=== PATIENT | male | born 1940 | race Caucasian/White ===

== ENCOUNTER 2019-06-24 09:27 | Emergency (ER) | payer MEDICARE ==
[~2019-06-24] VITALS: Ht 177.8 cm; Wt 75.7 kg
--- NOTE | 2019-06-24 10:03 | NUR ---
PT SEEN BY MD GRANGER, TRAUMA STATUS CALLED OFF PER MD GRANGER.
--- NOTE | 2019-06-24 10:20 | NUR ---
PT TAKEN TO CT
[2019-06-24 11:04] VITALS: BP 128/59
== END 2019-06-24 11:06 | disposition home or self-care (01) ==
LOC: ER 09:29
DX: S80.11XA Contusion of right lower leg, initial encounter (principal); S00.83XA Contusion of other part of head, initial encounter; F17.200 Nicotine dependence, unspecified, uncomplicated; Z88.8 Allergy status to other drugs, medicaments and biological substances; W18.39XA Other fall on same level, initial encounter; Y93.89 Activity, other specified; Y92.89 Other specified places as the place of occurrence of the external cause; Y99.8 Other external cause status
CPT/HCPCS: 70450; 73590; 99284

== ENCOUNTER 2020-05-28 06:04 | Day surgery (SDC) | payer MEDICARE ==
[2020-05-27 08:59] LABS: BASOPHILS % (AUTO) 0.6 % (0-1); EOSINOPHILS # (AUTO) 0.1 X10'3 (0-0.9); HEMATOCRIT 40.1 % (42.0-52.0); HEMOGLOBIN 13.7 g/dl (14.0-17.9); LYMPHOCYTES # (AUTO) 1.2 X10'3 (1.1-4.8); MEAN CORPUSCULAR HEMOGLOBIN 34.2 PG (27.0-31.0); MEAN CORPUSCULAR HGB CONC 34.2 g/dL (33.0-36.5); MEAN CORPUSCULAR VOLUME 100.1 FL (78-98); MEAN PLATELET VOLUME 7.8 FL (7.4-10.4); MONOCYTES # (AUTO) 0.5 X10'3 (0-0.9); MONOCYTES % (AUTO) 7.4 % (2-12); NEUTROPHILS # (AUTO) 4.6 X10'3 (1.8-7.7); PLATELET COUNT 156 X10'3 (140-440); RED BLOOD COUNT 4.01 X10'6 (4.70-6.10); RED CELL DISTRIBUTION WIDTH 12.9 % (11.5-14.5); WHITE BLOOD COUNT 6.5 X10'3 (4.5-11.0)
[2020-05-27 09:16] LABS: ALBUMIN 3.6 G/DL (3.4-5.0); ANION GAP 4 (8-16); BLOOD UREA NITROGEN 17 MG/DL (7-18); BUN/CREATININE RATIO 17.7 (5.4-32.0); CALCIUM 9.2 MG/DL (8.5-10.1); CHLORIDE 107 MMOL/L (99-107); CREATININE 0.96 MG/DL (0.60-1.10); GLUCOSE 99 MG/DL (70-104); POTASSIUM 4.5 MMOL/L (3.5-5.1); SODIUM 141 MMOL/L (135-145); TOTAL CARBON DIOXIDE 29.6 MMOL/L (24-32); eGFR 76 ML/MIN
[2020-05-27 09:18] LABS: PARTIAL THROMBOPLASTIN TIME 27 SECONDS (22-32)
[~2020-05-28] VITALS: Ht 172.7 cm; Wt 76.6 kg
[2020-05-28] VITALS (10 sets, daily range): BP systolic 103–127; BP diastolic 37–74
[2020-05-28] MEDS ORDERED: diphenhydrAMINE 25mg capsule PO PRN (06:25)
[2020-05-28] MEDS ORDERED: LORazepam 0.5 MG tablet PO PRN (06:25)
[2020-05-28] MEDS ORDERED: LIDOcaine/PRILOcaine 5gm cream TP ONE (06:35)
[2020-05-28] MEDS ORDERED: IRBE75TA30 PO (06:37)
[2020-05-28] MEDS ORDERED: METO50TA17 PO (06:37)
[2020-05-28] MEDS ORDERED: FLO0.4C PO (06:37)
[2020-05-28] MEDS ORDERED: MELA5TAB12 PO (06:37)
[2020-05-28] MEDS ORDERED: RIVA20TA PO (06:37)
[2020-05-28] MEDS ORDERED: ROSU20TA2 PO (06:37)
[2020-05-28] MEDS ORDERED: ESOM20CA PO (06:37)
[2020-05-28] MEDS ORDERED: ASPI-611 PO (06:37)
[2020-05-28] MEDS: normal saline 1,000 ML IV SCH ×2 (07:02→11:03)
[2020-05-28] MEDS ORDERED: LIDOcaine 1% (10mg/ml)w/preservative injection 20ml MDV ONE (07:39)
[2020-05-28] MEDS ORDERED: iohexol 350 MG/ML 50ML vial IV ONE ×2 (07:39→08:55)
[2020-05-28] MEDS ORDERED: fentaNYL/PF 50MCG/1 ML 2ML syringe ONE (07:39)
[2020-05-28] MEDS ORDERED: iohexol 350MG/ML 100ml bottle IV ONE (07:39)
[2020-05-28] MEDS ORDERED: heparin 1,000unit/ml 10ml vial 10 ML ONE (07:39)
[2020-05-28] MEDS ORDERED: midazolam 2 mg/2 ml injection ONE (07:39)
[2020-05-28] MEDS ORDERED: nitroGLYCERIN-Tridil 50MG/D5W 250 ML IV ONE (07:39)
[2020-05-28] MEDS ORDERED: verapamil 2.5 mg/ml inj IV ONE (07:44)
[2020-05-28] MEDS ORDERED: CHLOROPROCAINE SQ ONE (08:15)
== END 2020-05-28 15:00 | disposition home or self-care (01) ==
LOC: SSTAY O 06:04
PROVIDERS: ATTEND Internal Medicine Cardiovascular Disease
DX: R94.39 Abnormal result of other cardiovascular function study (principal); R06.02 Shortness of breath; R53.83 Other fatigue; I10 Essential (primary) hypertension; E78.5 Hyperlipidemia, unspecified; I48.91 Unspecified atrial fibrillation; I25.10 Atherosclerotic heart disease of native coronary artery without angina pectoris; J44.9 Chronic obstructive pulmonary disease, unspecified; Z95.5 Presence of coronary angioplasty implant and graft; F17.210 Nicotine dependence, cigarettes, uncomplicated; Z79.82 Long term (current) use of aspirin; Z79.899 Other long term (current) drug therapy; Z98.890 Other specified postprocedural states; Z72.89 Other problems related to lifestyle
CPT/HCPCS: 36415; 76937; 80048; 85025; 85610; 85730; 93005; 93458; 99152; 99153; C1769; C1894; J1644; J2001; J2250; J3010; J7030; Q0163; Q9967; A4620; A5120; A6258; C1751; J2400; J3490

== ENCOUNTER 2021-03-13 19:28 | Emergency (ER) | payer MEDICARE ==
[~2021-03-13] VITALS: Ht 167.6 cm; Wt 74.1 kg
[~2021-03-13 19:28] MED LIST: ASPI-611 PO; ESOM20CA PO; FLO0.4C PO; IRBE75TA30 PO; MELA5TAB12 PO; METO50TA17 PO; RIVA20TA PO; ROSU20TA2 PO
[2021-03-13] MEDS ORDERED: benzonatate 100mg capsule PO ONE (20:10)
[2021-03-13 20:18] LABS: BASOPHILS % (AUTO) 0.4 % (0-1); EOSINOPHILS # (AUTO) 0.1 X10'3 (0-0.9); EOSINOPHILS % (AUTO) 1.1 % (0-6); HEMATOCRIT 43.9 % (42.0-52.0); HEMOGLOBIN 14.9 g/dl (14.0-17.9); LYMPHOCYTES # (AUTO) 1.4 X10'3 (1.1-4.8); LYMPHOCYTES % (AUTO) 13.9 % (21-51); MEAN CORPUSCULAR HEMOGLOBIN 33.4 PG (27.0-31.0); MEAN CORPUSCULAR VOLUME 98.4 FL (78-98); MEAN PLATELET VOLUME 7.8 FL (7.4-10.4); MONOCYTES # (AUTO) 0.9 X10'3 (0-0.9); MONOCYTES % (AUTO) 9.1 % (2-12); NEUTROPHILS # (AUTO) 7.6 X10'3 (1.8-7.7); NEUTROPHILS % (AUTO) 75.5 % (42-75); PLATELET COUNT 183 X10'3 (140-440); RED BLOOD COUNT 4.46 X10'6 (4.70-6.10); RED CELL DISTRIBUTION WIDTH 13.3 % (11.5-14.5); WHITE BLOOD COUNT 10.1 X10'3 (4.5-11.0)
[2021-03-13 20:24] LABS: ALANINE AMINOTRANSFERASE 13 U/L (12-78); ALBUMIN 3.5 G/DL (3.4-5.0); ALBUMIN/GLOBULIN RATIO 0.9 (1.1-1.5); ALKALINE PHOSPHATASE 109 IU/L (46-116); ANION GAP 10 (8-16); ASPARTATE AMINO TRANSFERASE 16 U/L (10-37); BILIRUBIN,TOTAL 0.5 MG/DL (0.1-1.0); BLOOD UREA NITROGEN 19 MG/DL (7-18); BUN/CREATININE RATIO 18.1 (5.4-32.0); CALCIUM 8.9 MG/DL (8.5-10.1); CHLORIDE 109 MMOL/L (99-107); CREATININE 1.05 MG/DL (0.60-1.10); GLUCOSE 91 MG/DL (70-104); POTASSIUM 4.1 MMOL/L (3.5-5.1); SODIUM 144 MMOL/L (135-145); TOTAL CARBON DIOXIDE 25.4 MMOL/L (24-32); TOTAL PROTEIN 7.3 G/DL (6.4-8.2); eGFR 68 ML/MIN
[2021-03-13] MEDS ORDERED: metoprolol tartrate 1mg/ml inj IV ONE (20:35)
[2021-03-13] MEDS ORDERED: metoprolol tartrate 50mg tablet PO ONE (21:30)
[2021-03-13 22:02] VITALS: BP 117/61
== END 2021-03-13 22:03 | disposition home or self-care (01) ==
LOC: ER 19:29
DX: J22 Unspecified acute lower respiratory infection (principal); Z20.822 Contact with and (suspected) exposure to COVID-19; J45.909 Unspecified asthma, uncomplicated; Z88.8 Allergy status to other drugs, medicaments and biological substances; Z79.82 Long term (current) use of aspirin; Z79.899 Other long term (current) drug therapy
CPT/HCPCS: 36415; 71045; 80053; 85025; 93005; 96374; 99285; U0003; U0005; J3490

== ENCOUNTER 2021-04-27 01:40 | Emergency (ER) | payer MEDICARE ==
[~2021-04-27] VITALS: Ht 175.3 cm; Wt 77.3 kg
[2021-04-27 01:51] VITALS: BP 168/77
[2021-04-27] MEDS ORDERED: TETanus/Pertussis (Acell)/Diphther VAC/PF (Tdap-Adult) 0.5ml syringe IMVAC ONE (02:20)
[2021-04-27] MEDS ORDERED: NORMAL SALINE IV ONE ×2 (03:00→03:15)
[2021-04-27] MEDS ORDERED: DIPHENHYDRAMINE IV ONE ×2 (03:00→03:15)
[2021-04-27] MEDS ORDERED: CEPH-585 PO (04:18)
[2021-04-27] MEDS ORDERED: cephalexin 500mg capsule PO ONE (04:30)
[2021-04-27] MEDS ORDERED: tetanus & diphtheria toxoid (Td) vaccine 0.5ml IMVAC ONE (04:35)
== END 2021-04-27 04:53 | disposition home or self-care (01) ==
LOC: ER 01:41
DX: S61.213A Laceration without foreign body of left middle finger without damage to nail, initial encounter (principal); Z79.01 Long term (current) use of anticoagulants; I25.10 Atherosclerotic heart disease of native coronary artery without angina pectoris; I10 Essential (primary) hypertension; J44.9 Chronic obstructive pulmonary disease, unspecified; F17.200 Nicotine dependence, unspecified, uncomplicated; Z72.89 Other problems related to lifestyle; Z95.5 Presence of coronary angioplasty implant and graft; Z79.82 Long term (current) use of aspirin; Z79.899 Other long term (current) drug therapy; Z88.6 Allergy status to analgesic agent; X58.XXXA Exposure to other specified factors, initial encounter; Y93.89 Activity, other specified; Y92.89 Other specified places as the place of occurrence of the external cause; Y99.8 Other external cause status
CPT/HCPCS: 12001; 12002; 90471; 90715; 99283

== ENCOUNTER 2021-04-30 08:46 | Emergency (ER) | payer MEDICARE ==
[~2021-04-30] VITALS: Ht 170.2 cm; Wt 75.0 kg
[~2021-04-30 08:46] MED LIST changes: +CEPH-585 PO
[2021-04-30 08:49] VITALS: BP 105/81
[2021-04-30] MEDS ORDERED: bacitracin 15gm ointment TP ONE (09:15)
== END 2021-04-30 09:29 | disposition home or self-care (01) ==
LOC: ER 08:47
DX: S61.213D Laceration without foreign body of left middle finger without damage to nail, subsequent encounter (principal); I25.10 Atherosclerotic heart disease of native coronary artery without angina pectoris; I10 Essential (primary) hypertension; J44.9 Chronic obstructive pulmonary disease, unspecified; Z98.890 Other specified postprocedural states; Z72.89 Other problems related to lifestyle; Z79.82 Long term (current) use of aspirin; Z79.899 Other long term (current) drug therapy; X58.XXXD Exposure to other specified factors, subsequent encounter
CPT/HCPCS: 99281

== ENCOUNTER 2022-10-10 11:55 | Emergency (ER) | payer MEDICARE, OTHER ==
[~2022-10-10] VITALS: Ht 172.7 cm; Wt 77.3 kg
[~2022-10-10 11:55] MED LIST changes: -CEPH-585 PO
[2022-10-10 12:34] LABS: BASOPHILS % (AUTO) 0.3 % (0-1); EOSINOPHILS % (AUTO) 0.1 % (0-6); HEMATOCRIT 45.7 % (42.0-52.0); HEMOGLOBIN 15.4 g/dl (14.0-17.9); LYMPHOCYTES # (AUTO) 0.2 X10'3 (1.1-4.8); LYMPHOCYTES % (AUTO) 2.8 % (21-51); MEAN CORPUSCULAR HEMOGLOBIN 33.1 PG (27.0-31.0); MEAN CORPUSCULAR HGB CONC 33.6 g/dL (33.0-36.5); MEAN CORPUSCULAR VOLUME 98.4 FL (78-98); MEAN PLATELET VOLUME 7.6 FL (7.4-10.4); MONOCYTES # (AUTO) 0.5 X10'3 (0-0.9); MONOCYTES % (AUTO) 5.6 % (2-12); NEUTROPHILS % (AUTO) 91.2 % (42-75); PLATELET COUNT 157 X10'3 (140-440); RED BLOOD COUNT 4.65 X10'6 (4.70-6.10); RED CELL DISTRIBUTION WIDTH 13.3 % (11.5-14.5); WHITE BLOOD COUNT 8.8 X10'3 (4.5-11.0)
[2022-10-10 12:45] LABS: APTT 27 SECONDS (22-32)
[2022-10-10 12:47] LABS: ALANINE AMINOTRANSFERASE 20 U/L (12-78); ALBUMIN 3.7 G/DL (3.4-5.0); ALKALINE PHOSPHATASE 91 IU/L (46-116); ANION GAP 12 (8-16); ASPARTATE AMINO TRANSFERASE 30 U/L (10-37); BILIRUBIN,TOTAL 0.5 MG/DL (0.1-1.0); BLOOD UREA NITROGEN 23 MG/DL (7-18); BUN/CREATININE RATIO 19.5 (10.0-20.0); CALCIUM 8.2 MG/DL (8.5-10.1); CHLORIDE 105 MMOL/L (99-107); CREATININE 1.18 MG/DL (0.60-1.10); GLUCOSE 140 MG/DL (70-104); POTASSIUM 3.5 MMOL/L (3.5-5.1); SODIUM 142 MMOL/L (135-145); TOTAL CARBON DIOXIDE 24.7 MMOL/L (24-32); TOTAL PROTEIN 7.3 G/DL (6.4-8.2); eGFR 59 ML/MIN
[2022-10-10] MEDS ORDERED: normal saline 1000ML IV soln IVB ONE (13:30)
[2022-10-10 13:43] VITALS: BP 132/68
== END 2022-10-10 14:26 | disposition home or self-care (01) ==
LOC: ER 11:55
DX: R11.2 Nausea with vomiting, unspecified (principal); R41.82 Altered mental status, unspecified; I11.9 Hypertensive heart disease without heart failure; J44.9 Chronic obstructive pulmonary disease, unspecified; Z88.8 Allergy status to other drugs, medicaments and biological substances; W19.XXXA Unspecified fall, initial encounter; Y93.89 Activity, other specified; Y92.89 Other specified places as the place of occurrence of the external cause; Y99.8 Other external cause status
CPT/HCPCS: 36415; 70450; 80053; 85025; 85610; 85730; 93005; 96360; 99284; J7030